=== PATIENT | female | born 1980 | race Caucasian/White ===

== ENCOUNTER 2023-08-03 09:09 | Emergency (ER) | payer OTHER, SELFPAY ==
[2023-08-03 09:15] VITALS: BP 105/72; PULSE 84; TEMP 36.6; O2SAT 99; BMI 23.1
--- NOTE | 2023-08-03 09:42 | ED_ITS ---
HPI - Abdominal Pain General Chief Complaint: Abdominal Pain Stated Complaint: ABDOMINAL PAIN Time Seen by Provider: 08/03/23 09:37 Source: patient Mode of arrival: walk-in Limitations: no limitations History of Present Illness HPI narrative: Patient is here complaining of cramping abdominal pain. The pain is in the left upper quadrant. It lasted longer than usual although she has been having episodes of this for some time. She has had a previous gastric sleeve procedure done by a surgeon in [facility]. She has lost over 100 pounds. She has not had for her shakes or chills. No history of trauma or injury. She has not had previous cholecystectomy. She has never had pancreatitis. She is not a heavy alcohol user. She is not on antibiotics. She has not seen any blood in her bowel movements. She was advised by her practitioner to have a CT scan but has not followed up with this CT as of yet. Related Data Home Medications ?Medication ?Instructions ?Recorded ?Confirmed calcium carbonate (Tums) 300 mg PO DAILY 08/03/23 08/03/23 estradiol 0.045 mg-levonorgestrel 1 patch transdermal QWEEK 08/03/23 08/03/23 0.015 mg/24hr weekly transderm patch (Climara Pro) famotidine 20 mg tablet (Acid-Pep) 20 mg PO BID 08/03/23 08/03/23 levothyroxine 150 mcg tablet 150 mcg PO DAILY 08/03/23 08/03/23 (Euthyrox) pantoprazole 40 mg tablet,delayed 40 mg PO DAILY 08/03/23 08/03/23 release (Protonix) sumatriptan succinate 25 mg tablet 25 mg PO Q2H PRN migraine headache 08/03/23 08/03/23 (Imitrex) Allergies Allergy/AdvReac Type Severity Reaction Status Date / Time amitriptyline Allergy Mild Verified 08/03/23 09:14 metoclopramide [From Reglan] Allergy Mild Verified 08/03/23 09:14 vicodin Allergy Intermediate Uncoded 08/03/23 09:14 morphine Allergy Mild Uncoded 08/03/23 09:14 Exam Narrative Exam Narrative: Awake alert [place] x 3 vital signs are stable afebrile does not appear critically ill. Examination of the abdomen there is no abdominal guarding rebound rigidity or peritoneal findings. Bowel sounds are present in all quadrants. She has some discomfort to palpation in the left epigastric and left upper quadrant. There is no splenomegaly. Harmon sign is negative. There is no tenderness in McBurney's point. She has an estrogen patch in the suprapubic area. She does not have discomfort to palpation in this area. She has no scleral icterus or evidence of jaundice. Constitutional Vital Signs, click to edit/add: Last Vital Signs Temp 97.9 F 08/03/23 09:15 Pulse 84 08/03/23 09:15 Resp 18 08/03/23 09:15 BP 105/72 08/03/23 09:15 Pulse Ox 99 08/03/23 09:15 O2 Del Method Room Air 08/03/23 09:15 Course Vital Signs Vital signs: Vital Signs Temperature 97.9 F 08/03/23 09:15 Pulse Rate 84 08/03/23 09:15 Respiratory Rate 18 08/03/23 09:15 Blood Pressure 105/72 08/03/23 09:15 Pulse Oximetry 99 08/03/23 09:15 Oxygen Delivery Method Room Air 08/03/23 09:15 Temperature 97.9 F 08/03/23 09:15 Pulse Rate 84 08/03/23 09:15 Respiratory Rate 18 08/03/23 09:15 Blood Pressure 105/72 08/03/23 09:15 Pulse Oximetry 99 08/03/23 09:15 Oxygen Delivery Method Room Air 08/03/23 09:15 MDM - Abdominal Pain MDM Narrative Medical decision making narrative: This patient's status post gastric sleeve is have intermittent episodes of cramping a little bit but more pronounced today. Her laboratory testing did not show any gross abnormalities or evidence of pancreatitis. Her CT of the abdomen is equally benign with no evidence of an acute process. This is probably more of a functional consideration. She should follow-up with her surgeon for further treatment recommendations but today short course of antispasmodics may be in order with a liquid diet Discharge Plan Discharge Stand Alone Forms: Portal Instructions Chief Complaint: Abdominal Pain Clinical Impression: Abdominal pain Patient Disposition: Home, Self-Care Time of Disposition Decision: 12:12 Prescriptions / Home Meds: No Action levothyroxine [Euthyrox] 150 mcg tablet 150 mcg PO DAILY Climara Pro 0.045-0.015 mg/24 hr patch weekly 1 patch transdermal QWEEK pantoprazole [Protonix] 40 mg tablet,delayed release (DR/EC) 40 mg PO DAILY famotidine [Acid-Pep] 20 mg tablet 20 mg PO BID Tums 300 mg (750 mg) tablet,chewable 300 mg PO DAILY sumatriptan succinate [Imitrex] 25 mg tablet 25 mg PO Q2H PRN (Reason: migraine headache) Rx Instructions: do not exceed 8 doses per 24 hrs Print Language: Icelandic Additional Instructions: May use 1 or 2 doses of Bentyl on a limited basis. Clear fluid diet, follow-up with your GI specialist Referrals: Physician,Non-Staff, MD [Primary Care Provider] - 1 week
--- NOTE | 2023-08-03 09:44 | CT_ITS ---
The [address] [address] Patient Name: YESICA LYNCH MRN: [id number] date: 1980 Sex: F Assigned Patient Location: ER Current Patient Location: ER Accession/Order Number: [id number] Exam Date: 08/03/2023 11:00 Report Date: 08/03/2023 11:26 At the request of: ALICIA HUMPHREY Procedure: CT abdomen pelvis w con EXAMINATION: CT abdomen pelvis w con HISTORY: Abdominal pain post gastric sleeve COMPARISON: No relevant comparison available. TECHNIQUE: CT images were created with IV contrast. Axial, Coronal, and Sagittal images. Dose reduction techniques were achieved by using automated exposure control and/or adjustment of mA and/or kV according to patient size and/or use of iterative reconstruction technique. FINDINGS: LUNG BASES: No visible pulmonary or pleural disease. LIVER: Area of hypodensity of the falciform ligament likely focal fatty infiltration BILIARY: No visible dilatation or calcification. PANCREAS: No lesion, fluid collection, ductal dilatation, or atrophy. SPLEEN: No enlargement or focal lesion. ADRENALS: No mass or enlargement. KIDNEYS: 5 mm nonobstructing right nephrolith. No hydronephrosis BOWEL/MESENTERY: Suture line along the stomach consistent with known gastric sleeve. Mild colonic diverticulosis without evidence of acute diverticulitis. Nonobstructive bowel gas pattern. AORTA/VASCULAR: No aortic aneurysm or dissection RETROPERITONEUM: No mass or adenopathy. LYMPH NODES: No adenopathy. URINARY BLADDER: No visible focal wall thickening, lesion, or calculus. PELVIC ORGANS: Hysterectomy ABDOMINAL WALL: No mass or hernia. BONES: Posterior decompression and transpedicular fusion with interbody spacers L4-S1. Normal OTHER: Negative. CT/CT abdomen pelvis w con IMPRESSION: No acute intraperitoneal abnormality Electronically authenticated by: ANTHONY WASHINGTON Date: 08/03/2023 11:26
[2023-08-03 09:52] LABS: Basophils Percent Auto 0.4 % (0.2-2.0); Eosinophils Absolute Auto 0.2 10^3/uL (0.0-0.7); Eosinophils Percent Auto 2.3 % (0.9-7.0); Hematocrit 43.9 % (36.0-48.0); Immature Granulocytes Abs Auto 0.02 10^3/uL (0.00-0.03); Immature Granulocytes Pct Auto 0.2 % (0.0-0.5); Lymphocytes Absolute Auto 2.7 10^3/uL (1.2-3.8); Lymphocytes Percent Auto 32.4 % (20.5-60.0); Mean Corpuscular HGB Conc 31.9 g/dL (29.9-35.2); Mean Corpuscular Hemoglobin 29.7 pg (26.7-34.0); Mean Corpuscular Volume 93.2 fL (81.0-99.0); Mean Platelet Volume 11.1 fL (9.5-13.5); Monocytes Absolute Auto 0.6 10^3/uL (0.3-0.8); Monocytes Percent Auto 7.4 % (1.7-12.0); Neutrophils Absolute Auto 4.8 10^3/uL (1.4-6.5); Neutrophils Percent Auto 57.3 % (43.0-75.0); Platelet Count 212 10^3/uL (150-450); Red Blood Count 4.71 10^6/uL (4.20-5.40); Red Cell Distribution Width 12.9 % (11.0-15.0); White Blood Count 8.4 10^3/uL (4.0-11.0)
[2023-08-03 09:54] LABS: Bilirubin Urine SMALL (NEGATIVE); Blood Urine SMALL (NEGATIVE); Clarity Urine CLEAR (CLEAR); Color Urine DK. YELLOW (YELLOW); Glucose Urine UA NEGATIVE (NEGATIVE); Ketones Urine NEGATIVE (NEGATIVE); Leukocyte Esterase Urine TRACE (NEGATIVE); Nitrite Urine POSITIVE (NEGATIVE); Protein Urine TRACE mg/dL (NEG/TRACE); Specific Gravity Urine >=1.030 (1.005-1.025); pH Urine 5.5 (5.0-9.0)
[2023-08-03 09:55] LABS: HCG Qualitative Urine* NEGATIVE (NEGATIVE); Internal Control Within Normal Limits
[2023-08-03] MEDS: ONDANSETRON PF 4 MG/2 ML VIAL IV (09:59)
[2023-08-03 10:03] LABS: Alanine Aminotransferase 23 U/L (14-59); Albumin Globulin Ratio 1.2; Alkaline Phosphatase 85 U/L (46-116); Anion Gap 13.7; Aspartate Amino Transferase 16 U/L (15-37); BUN Creatinine Ratio 19.6; Bilirubin Total 1.3 mg/dL (0.2-1.0); Calcium 8.9 mg/dL (8.5-10.1); Carbon Dioxide 28.6 mmol/L (21.0-32.0); Chloride 103 mmol/L (98-107); Estimated GFR (African America >60 (>=60); Estimated GFR (Non-African Ame >60 (>=60); Globulin 3.3 g/dL; Glucose 90 mg/dL (74-106); Potassium 3.3 mmol/L (3.5-5.1); Sodium 142 mmol/L (136-145); Total Protein 7.3 g/dL (6.4-8.2)
[2023-08-03 10:31] LABS: Bacteria Urine TRACE #/HPF (NONE SEEN); Cast Seen? NONE SEEN #/LPF (NONE SEEN); Crystals Seen? None Seen #/HPF (None Seen); Mucus Urine TRACE (NONE SEEN); RBC Urine 0-2 #/HPF (0-2); Squamous Epithelial Cell Urine RARE #/LPF (NONE/RARE)
== END 2023-08-03 12:23 | disposition home or self-care (01) ==
PROVIDERS: Emergency Provider Emergency Medicine Emergency Medical Services
DX: R10.9 Unspecified abdominal pain (principal); Z98.84 Bariatric surgery status
CPT/HCPCS: 36415; 74177; 80053; 80076; 81001; 83690; 84703; 85025; 96374; 99284; Q9966; Q9967